=== PATIENT | female | born 1970 | race Caucasian/White ===

== ENCOUNTER 2018-03-24 12:42 | Emergency (ER) | payer OTHER ==
[2018-03-24 12:54] VITALS: BP 125/80
--- NOTE | 2018-03-24 12:58 | ED Physician Documentation ---
PD HPI SKIN - Stated complaint Stated Complaint: RASH ON FACE AND HEAD - Chief complaint Chief Complaint: Wound - History obtained from History obtained from: Patient - History of Present Illness Timing - onset: Other (She has had a few days of Painful lesions on the right side of the face and nose and up into the scalp. No visual deficit. She is a diabetic and her blood sugars have been well controlled.) Review of Systems Constitutional: denies: Fever, Chills Eyes: denies: Loss of vision, Decreased vision, Photophobia, Discharge, I rritation Nose: denies: Rhinorrhea / runny nose, Congestion Throat: denies: Dental pain / toothache, Oral lesions / sores, Sore throat Cardiac: denies: Chest pain / pressure, Palpitations PD PAST MEDICAL HISTORY - Present Medications Home Medications: Ambulatory Orders Medication Instructions Recorded Confirmed Acyclovir [Zovirax] 800 mg PO 5XD #50 tablet 03/24/18 Hydrocodone/Acetaminophen 1 - 2 each PO Q6H PRN #14 tablet 03/24/18 [Hydrocodon-Acetaminophen 5-325] - Allergies Allergies/Adverse Reactions: Allergies Allergy/AdvReac Type Severity Reaction Status Date / Time No Known Drug Allergies Allergy Verified 03/24/18 12:50 PD ED PE NORMAL - Vitals Vital signs reviewed: Yes - General General: Alert and oriented X 3, No acute distress - HEENT HEENT: PERRL, EOMI, Other (She has a mild case of zoster on the right upper lip cheek and scalp. The globe looks fine grossly and there is no uptake of fluorescein.) - Neck Neck: Supple, no meningeal sign, No bony TTP - Neuro Neuro: Alert and oriented X 3, Normal speech Results - Vitals Vitals: Vital Signs - 24 hr 03/24/18 12:50 Temperature 36.5 C Heart Rate 99 Respiratory 14 Rate Blood Pressure 125/80 O2 Saturation 99 Oxygen O2 Source Room air PD MEDICAL DECISION MAKING - ED course ED course: 48-year-old woman who has diabetes presents with mild case of zoster to the right face without evidence of ophthalmic involvement. She is placed on acyclovir and she needs some pain medication. We discussed the risk benefit ratio of prednisone given the underlying diabetes and agreed not to start that. Departure - Departure Disposition: 01 Home, Self Care Clinical Impression: Herpes zoster Qualifiers: Herpes zoster complications: without complications Qualified Code(s): B02.9 - Zoster without complications Condition: Good Record reviewed to determine appropriate education?: Yes Instructions: ED Shingles Prescriptions: Acyclovir [Zovirax] 800 mg PO 5XD #50 tablet Hydrocodone/Acetaminophen [Hydrocodon-Acetaminophen 5-325] 1 - 2 each PO Q6H PRN #14 tablet PRN Reason: pain Comments: Call your doctor to arrange a follow-up appointment, make the next available appointment. In the interim, return anytime if worse or if new symptoms develop.
== END 2018-03-24 13:05 | disposition home or self-care (01) ==
LOC: ED 12:42
DX: B02.9 Zoster without complications (principal); E11.9 Type 2 diabetes mellitus without complications
CPT/HCPCS: 99283